=== PATIENT | female | born 1990 | race Caucasian/White ===

== ENCOUNTER → 2016-12-02 | Outpatient (REF) | payer OTHER ==
[~2016-12-02] MED LIST: ALBUTEROL INHALATION; ALLEGRA180 PO; ASPI325T; ASTELIN NASAL; AURASOL TOPICAL; CIPR500T4 OR; COLA100C2 OR; CORTISPOR OTIC; DIFLUC150 PO; DOXYCYC100 PO; FERR325T OR; FLAG500T OR; LISINOPR5 PO; MULTIVIT PO; No Historical Meds; ORTHOTRI PO; PERC5TAB8; PERC5TAB8 OR; SINGULAI10 PO; TRAM50TA2 PO; VITA500T OR; [UNRECOGNIZED DRUG - CODE] IM
== END ==
LOC: M LAB REF 20:01
PROVIDERS: ATTEND Physician Assistant Medical
DX: R50.9 Fever, unspecified (principal)

== ENCOUNTER 2016-12-19 18:32 | Emergency (ER) | payer OTHER ==
[~2016-12-19] VITALS: Ht 165.1 cm; Wt 122.5 kg
[2016-12-19] MEDS ORDERED: INCR1INH INH (18:52)
[2016-12-19] MEDS ORDERED: [UNRECOGNIZED DRUG - CODE] AD (18:52)
[2016-12-19] MEDS ORDERED: ALBU1TAB4 INH (18:52)
[2016-12-19] MEDS ORDERED: IPRATROPIUM 0.5MG/ALBUTEROL 2.5MG INH SOL UD 3ML (DUONEB)(J7620) NEB ONE (21:45)
[2016-12-19 22:38] LABS: BASO # 0.2 K/mm3 (0.0-0.2); BASO % 1.6 % (0.0-1.0); EOS # 0.4 K/mm3 (0.0-0.50); EOS % 3.1 % (0.0-3.0); LARGE UNSTAINED CELL # 0.7 K/mm3 (0.0-0.4); LARGE UNSTAINED CELL % 5.5 % (0.0-4.0); LYMPH # 9.6 K/mm3 (1.5-6.5); LYMPH % 67.4 % (24.0-44.0); MEAN CORPUSCULAR HEMOGLOBIN 30.5 pg (27.0-33.0); MEAN CORPUSCULAR HGB CONC 33.5 g/dl (32.0-36.5); MEAN CORPUSCULAR VOLUME 91.1 fl (80.0-96.0); MONO # 0.5 K/mm3 (0.0-0.8); MONO % 3.9 % (0.0-5.0); NEUTROPHILS # 2.5 K/mm3 (1.8-7.7); NEUTROPHILS % 18.5 % (36.0-66.0); PLATELET COUNT, AUTOMATED 195 k/mm3 (150-450); RED CELL DISTRIBUTION WIDTH 14.5 % (11.5-14.5); WHITE BLOOD COUNT 13.2 K/mm3 (4.0-10.0)
[2016-12-19 23:04] LABS: ALBUMIN 3.2 GM/DL (3.2-5.2); ALBUMIN/GLOBULIN RATIO 0.82 (1.00-1.93); ALKALINE PHOSPHATASE 116 U/L (45-117); ALT/SGPT 54 U/L (12-78); ANION GAP 8 MEQ/L (8-16); AST/SGOT 56 U/L (15-37); BILIRUBIN,TOTAL 1.3 MG/DL (0.2-1.0); BLOOD UREA NITROGEN 8 MG/DL (7-18); CARBON DIOXIDE LEVEL 28 MEQ/L (21-32); CHLORIDE LEVEL 106 MEQ/L (98-107); CREATININE FOR GFR 0.64 MG/DL (0.55-1.02); GLOMERULAR FILTRATION RATE > 60.0 (>60); GLUCOSE, FASTING 98 MG/DL (70-105); POTASSIUM SERUM 3.7 MEQ/L (3.5-5.1); SODIUM LEVEL 142 MEQ/L (136-145); TOTAL PROTEIN 7.1 GM/DL (6.4-8.2)
[2016-12-20] MEDS ORDERED: ISOVUE-370 76% 100ML VIAL (Q9967) As Ordered ONE (00:46)
--- NOTE | 2016-12-20 02:20 | REPUSA ---
CLINICAL HISTORY: Dyspnea, exclude PE. TECHNIQUE: Multiple incremental axial, coronal and oblique images are obtained from the thoracic inle t to the upper abdomen. Intravenous contrast material was administered as per pulmonary embolism prot ocol. COMMENTS: Limited evaluation of the peripheral branches of the pulmonary arteries. No central pulmonary embolus is seen. Aorta is of normal caliber without evidence for dissection or aneurysm. There is no evidence of pleural or parenchymal mass. There are no pleural effusions. There is no evid ence of hilar or mediastinal lymphadenopathy. The heart and great vessels are within normal limits. Images of the upper abdomen demonstrate no evidence of adrenal mass. The bony structures are free of lytic or blastic lesions. IMPRESSION: No evidence for central pulmonary embolism. Minimal basilar atelectatic pulmonary changes. Thank you for your kind referral of this patient.
[2016-12-20 02:33] VITALS: BP 114/77
--- NOTE | 2016-12-20 08:53 | REP ---
Chest two views HISTORY: Chest pain Comparison: 08/02/2016 The lungs are clear. The heart is normal in size. The pulmonary vasculature is normal in appearance. The bony structure is intact. IMPRESSION: No acute disease. Signed by Pedrito Thomason MD 12/20/2016 08:44 A
== END 2016-12-20 02:30 | disposition home or self-care (01) ==
LOC: M ED 22:16
DX: J10.89 Influenza due to other identified influenza virus with other manifestations (principal); J45.909 Unspecified asthma, uncomplicated; Z79.899 Other long term (current) drug therapy; Z88.0 Allergy status to penicillin; Z88.2 Allergy status to sulfonamides; Z88.8 Allergy status to other drugs, medicaments and biological substances
CPT/HCPCS: 36415; 71020; 71275; 80053; 83690; 85025; 85379; 94640; 99282; Q9967

== ENCOUNTER 2017-01-31 20:14 | Emergency (ER) | payer OTHER ==
[~2017-01-31] VITALS: Ht 165.1 cm; Wt 113.4 kg
[~2017-01-31 20:14] MED LIST changes: +ALBU1TAB4 INH; +INCR1INH INH; +[UNRECOGNIZED DRUG - CODE] AD
[2017-01-31 20:33] VITALS: BP 149/106
[2017-01-31] MEDS ORDERED: CLEO300C2 PO (20:45)
[2017-01-31] MEDS ORDERED: CLINDAMYCIN 150 MG CAP PO ONE (20:45)
[2017-01-31] MEDS ORDERED: NORCO 5/325MG TABLET (BULK FOR ED) PO ONE (20:45)
== END 2017-01-31 21:35 | disposition home or self-care (01) ==
LOC: M ED 20:59
DX: K08.89 Other specified disorders of teeth and supporting structures (principal); K02.9 Dental caries, unspecified; F17.200 Nicotine dependence, unspecified, uncomplicated; Z88.0 Allergy status to penicillin; Z88.2 Allergy status to sulfonamides; Z79.899 Other long term (current) drug therapy; Z88.1 Allergy status to other antibiotic agents

== ENCOUNTER 2017-10-26 18:28 | Emergency (ER) | payer OTHER ==
[2017-10-26] MEDS: NS 1,000 ML IV (20:00)
[2017-10-26] MEDS: TRIMETHOBENZAMIDE HCL INJ 200 MG/2 ML VIAL (J3250) IM (20:00)
[2017-10-26] MEDS: KETOROLAC 30 MG/ML VIAL (J1885) IV (20:00)
[2017-10-26] MEDS: LevoFLOXacin IV 750 MG in APPROPRIATE DILUENT 1 EA IV (20:00)
[2017-10-26] MEDS: ACETAMINOPHEN 325 MG TAB PO (20:00)
[2017-10-26] MEDS: guaiFENesin/CODEINE SYRUP 5 ML UDC PO (20:00)
[2017-10-26 20:49] LABS: BASO % 0.2 % (0.0-1.0); EOS % 0.2 % (0.0-3.0); HEMATOCRIT 40.6 % (36.0-47.0); HEMOGLOBIN 13.8 g/dl (12.0-16.0); IMMATURE GRANULOCYTE % 0.3 % (0-0); LYMPH # 1.6 10^3/uL (1.5-6.5); LYMPH % 24.7 % (24.0-44.0); MEAN CORPUSCULAR HEMOGLOBIN 29.5 pg (27.0-33.0); MEAN CORPUSCULAR VOLUME 86.8 fl (80.0-96.0); MONO # 0.6 10^3/uL (0.0-0.8); MONO % 9.2 % (0.0-5.0); NEUTROPHILS # 4.3 10^3/uL (1.8-7.7); NEUTROPHILS % 65.4 % (36.0-66.0); PLATELET COUNT, AUTOMATED 189 10^3/uL (150-450); RED BLOOD COUNT 4.68 10^6/uL (4.00-5.40); RED CELL DISTRIBUTION WIDTH 12.7 % (11.5-14.5); WHITE BLOOD COUNT 6.5 10^3/uL (4.0-10.0)
[2017-10-26 20:52] LABS: ANION GAP 10 MEQ/L (8-16); BLOOD UREA NITROGEN 11 MG/DL (7-18); CALCIUM LEVEL 8.3 MG/DL (8.5-10.1); CARBON DIOXIDE LEVEL 25 MEQ/L (21-32); CHLORIDE LEVEL 104 MEQ/L (98-107); GLOMERULAR FILTRATION RATE > 60.0 (>60); GLUCOSE, FASTING 98 MG/DL (70-105); POTASSIUM SERUM 3.6 MEQ/L (3.5-5.1); SODIUM LEVEL 139 MEQ/L (136-145)
[2017-10-26] MEDS: IPRATROPIUM 0.5MG/ALBUTEROL 2.5MG INH SOL UD 3ML (DUONEB)(J7620) NEB (21:40)
[2017-10-26] MEDS: ALBUTEROL 90 MCG/ACT 8GM HFA INHALER INH (22:00)
== END 2017-10-26 22:16 | disposition home or self-care (01) ==
LOC: M ED 18:28
DX: J18.9 Pneumonia, unspecified organism (principal); J45.909 Unspecified asthma, uncomplicated; F17.200 Nicotine dependence, unspecified, uncomplicated
CPT/HCPCS: J1956

== ENCOUNTER → 2018-08-03 | Outpatient (CLI) | payer OTHER | LOC: M RAD 15:14 | DX: M25.562 Pain in left knee (principal) | CPT/HCPCS: 73564 ==

== ENCOUNTER 2019-06-12 13:35 | Emergency (ER) | payer OTHER, SELFPAY ==
[~2019-06-12] VITALS: Ht 165.1 cm; Wt 121.2 kg
[~2019-06-12 13:35] MED LIST changes: +CHERSYP3 PO; +CLEO300C2 PO; +DOXY-350 PO; +LEVA750T7 PO; +PERC5TAB12 PO; +PRED1TABL PO; +TESS100C PO; +TIGA300C2 PO
[2019-06-12] MEDS ORDERED: SINUS MED (13:42)
[2019-06-12] MEDS: ALBUTEROL SULFATE 2.5 MG/0.5 ML INH NEB SOLN NEB PRN ×4 (16:23→17:05)
[2019-06-12 16:38] LABS: BASO % 0.3 % (0.0-1.0); EOS # 0.9 10^3/uL (0.0-0.50); EOS % 7.3 % (0.0-3.0); HEMATOCRIT 41.9 % (36.0-47.0); HEMOGLOBIN 14.3 g/dl (12.0-15.5); LYMPH # 2.6 10^3/uL (1.5-4.5); LYMPH % 20.1 % (24.0-44.0); MEAN CORPUSCULAR HEMOGLOBIN 31.3 pg (27.0-33.0); MEAN CORPUSCULAR HGB CONC 34.1 g/dl (32.0-36.5); MEAN CORPUSCULAR VOLUME 91.7 fl (80.0-96.0); MONO # 0.9 10^3/uL (0.0-0.8); MONO % 6.8 % (0.0-5.0); NEUTROPHILS # 8.4 10^3/uL (1.8-7.7); NEUTROPHILS % 65.2 % (36.0-66.0); PLATELET COUNT, AUTOMATED 279 10^3/uL (150-450); RED BLOOD COUNT 4.57 10^6/uL (4.00-5.40); WHITE BLOOD COUNT 12.9 10^3/uL (4.0-10.0)
[2019-06-12 17:09] LABS: ALBUMIN 3.2 GM/DL (3.2-5.2); ALT/SGPT 39 U/L (12-78); BILIRUBIN,DIRECT 0.2 MG/DL (0.0-0.2); BILIRUBIN,TOTAL 1.1 MG/DL (0.2-1.0); BLOOD UREA NITROGEN 7 MG/DL (7-18); CALCIUM LEVEL 8.8 MG/DL (8.5-10.1); CARBON DIOXIDE LEVEL 28 MEQ/L (21-32); CHLORIDE LEVEL 106 MEQ/L (98-107); CREATININE FOR GFR 0.61 MG/DL (0.55-1.30); GLOMERULAR FILTRATION RATE > 60.0 (>60); GLUCOSE, FASTING 86 MG/DL (70-100); LIPASE 80 U/L (73-393); POTASSIUM SERUM 3.9 MEQ/L (3.5-5.1); SODIUM LEVEL 140 MEQ/L (136-145); TOTAL PROTEIN 6.4 GM/DL (6.4-8.2)
--- NOTE | 2019-06-12 18:00 | REP ---
PA AND LATERAL CHEST: 06/12/2019. Comparison: Chest x-ray 10/25/2017, CT angiogram 12/20/2016. Clinical history: Dyspnea and cough. Findings: The two-views show lungs only marginally adequate in degree of inflation on the frontal and lateral projections. There is some peribronchial thickening and streaky densities suggesting bronchitis or reactive airway disease. I do not see dense consolidation to suggest pneumonia as noted on the previous study. There is no effusion or lateral pleural thickening and no apical scarring. Heart not enlarged. The aorta and airway intact. The bony thorax shows no compression deformity or focal lesion. No free air. Impression: 1. Some minor perihilar changes of bronchitis or reactive airway disease without dense consolidation, pleural effusion, cardiomegaly or edema. Electronically Signed by Cipriano Infante MD 06/12/2019 07:45 P
[2019-06-12] MEDS ORDERED: methylPREDNISolone INJ 125 MG/2 ML VIAL (J2930) IV ONE (18:30)
[2019-06-12] MEDS ORDERED: methylPREDNISolone INJ 125 MG/2 ML VIAL (J2930) IM ONE (18:45)
[2019-06-12] MEDS ORDERED: AZIT-12 PO (19:22)
[2019-06-12] MEDS ORDERED: PRED20TA PO (19:22)
[2019-06-12] MEDS ORDERED: PROAAER10 INH (20:10)
[2019-06-12 20:14] VITALS: O2SAT 97
[2019-06-12 20:15] VITALS: BP 168/80
== END 2019-06-12 20:29 | disposition home or self-care (01) ==
LOC: M ED 13:35
DX: J45.901 Unspecified asthma with (acute) exacerbation (principal); J02.8 Acute pharyngitis due to other specified organisms; J31.0 Chronic rhinitis; R00.0 Tachycardia, unspecified; F17.210 Nicotine dependence, cigarettes, uncomplicated; Z88.0 Allergy status to penicillin; Z88.2 Allergy status to sulfonamides
CPT/HCPCS: 71046; 80048; 80076; 83690; 85025; 87880; 94640; 96372; 99284; J2930

== ENCOUNTER 2019-07-10 18:46 | Emergency (ER) | payer SELFPAY ==
[~2019-07-10] VITALS: Ht 165.1 cm; Wt 113.6 kg
[~2019-07-10 18:46] MED LIST changes: +AZIT-12 PO; +PRED20TA PO; +PROAAER10 INH; +SINUS MED
[2019-07-10 19:14] LABS: BASO % 0.3 % (0.0-1.0); EOS % 9.6 % (0.0-3.0); HEMATOCRIT 37.8 % (36.0-47.0); HEMOGLOBIN 12.7 g/dl (12.0-15.5); LYMPH # 3.4 10^3/uL (1.5-5.0); LYMPH % 33.5 % (24.0-44.0); MEAN CORPUSCULAR HEMOGLOBIN 30.4 pg (27.0-33.0); MEAN CORPUSCULAR HGB CONC 33.6 g/dl (32.0-36.5); MEAN CORPUSCULAR VOLUME 90.4 fl (80.0-96.0); MONO # 0.7 10^3/uL (0.0-0.8); MONO % 6.8 % (0.0-5.0); NEUTROPHILS # 4.9 10^3/uL (1.5-8.5); PLATELET COUNT, AUTOMATED 322 10^3/uL (150-450); RED BLOOD COUNT 4.18 10^6/uL (4.00-5.40)
[2019-07-10 19:47] LABS: BLOOD UREA NITROGEN 12 MG/DL (7-18); CARBON DIOXIDE LEVEL 24 MEQ/L (21-32); CHLORIDE LEVEL 109 MEQ/L (98-107); CK-MB VALUE MASS 1.2 NG/ML (<3.6); CPK CREATINE PHOSPHOKINASE 131 U/L (26-192); CREATININE FOR GFR 0.66 MG/DL (0.55-1.30); GLOMERULAR FILTRATION RATE > 60.0 (>60); GLUCOSE, FASTING 99 MG/DL (70-100); MB/CK RELATIVE INDEX 0.92 (< OR =4); POTASSIUM SERUM 3.7 MEQ/L (3.5-5.1); SODIUM LEVEL 142 MEQ/L (136-145); TROPONIN I < 0.02 NG/ML (< 0.10)
--- NOTE | 2019-07-10 19:56 | REP ---
Portable chest x-ray: Single view. History: Dyspnea and cough. Comparison chest x-ray: June 12, 2019. Findings: EKG monitoring electrodes overlie the chest. Heart is not enlarged. Lungs are symmetrically aerated and clear. Pleural angles are sharp. No significant bony abnormality is seen. Impression: No acute disease. Electronically Signed by Marco A Larsen MD 07/10/2019 07:47 P
[2019-07-10] MEDS ORDERED: methylPREDNISolone INJ 125 MG/2 ML VIAL (J2930) IV ONE (20:15)
[2019-07-10] MEDS ORDERED: ISOVUE-370 76% 100ML VIAL (Q9967) As Ordered ONE (20:15)
[2019-07-10] MEDS: IPRATROPIUM 0.5MG/ALBUTEROL 2.5MG INH SOL UD 3ML (DUONEB)(J7620) NEB PRN ×3 (20:27→22:50)
--- NOTE | 2019-07-10 22:29 | REPVR ---
PROCEDURE INFORMATION: Exam: CT Angiography Chest With Contrast Exam date and time: 07/10/19 (8:20pm) Clinical history: 29 years old female with pleuritic chest pain and SOB. Possible pulmonary embolism. TECHNIQUE: Imaging protocol: Computed tomographic angiography of the chest with intravenous contrast. 3D rendering: MIP reconstructed images were created and reviewed. Radiation optimization: All CT scans at this facility use at least one of these dose optimization techniques: automated exposure control; mA and/or kV adjustment per patient size (includes targeted exams where dose is matched to clinical indication); or iterative reconstruction. Contrast material: Isovue 370 Contrast volume: 75 ml Contrast route: IV COMPARISON: CTA CHEST of 12/20/16 FINDINGS: Pulmonary arteries: Normal. No pulmonary emboli. Aorta: Unremarkable. No aortic aneurysm. No aortic dissection. Lungs: Unremarkable. No consolidation. No masses. Pleural space: Unremarkable. No pneumothorax. No pleural effusions. Heart: Unremarkable. No cardiomegaly. No pericardial effusion. Lymph nodes: Unremarkable. No enlarged lymph nodes. Bones/joints: Unremarkable. No acute fracture. Soft tissues: Unremarkable. Upper abdomen: Small hiatal hernia. Perhaps previous cholecystectomy (needs correlation). IMPRESSION: No acute findings. Electronically signed by: Radha Kern On 07/10/2019 22:29:21 PM
--- NOTE | 2019-07-10 22:31 | REPVR ---
PROCEDURE INFORMATION: Exam: US Duplex Right Lower Extremity Veins, Limited Exam date and time: 07/10/19 (9:21pm) Clinical history: 29 years old female with right left pain and swelling. Possible DVT. TECHNIQUE: Imaging protocol: Real-time Duplex ultrasound of the Right Lower Extremity with 2-D marie scale, color Doppler flow and spectral waveform analysis with image documentation. Limited exam was focused on the right lower extremity veins. COMPARISON: No relevant prior studies available FINDINGS: Right deep veins: Unremarkable. The common femoral, femoral, proximal profunda femoral and popliteal veins are patent without thrombus. Normal Doppler waveforms. Normal compressibility and augmentation responses. Right superficial veins: Unremarkable. Saphenofemoral junction is patent without thrombus. Soft tissues: Unremarkable. IMPRESSION: No acute findings. No evidence of deep vein thrombosis. Electronically signed by: Radha Kern On 07/10/2019 22:31:33 PM
[2019-07-10] MEDS ORDERED: PRED20TA PO (23:36)
[2019-07-10] MEDS ORDERED: VENTAER INH (23:36)
[2019-07-10 23:49] VITALS: O2SAT 95
[2019-07-10 23:51] VITALS: BP 152/89
--- NOTE | 2019-07-11 20:39 | ECGEPIP ---
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
== END 2019-07-10 23:53 | disposition home or self-care (01) ==
LOC: M ED 18:46
DX: R06.02 Shortness of breath (principal); R06.2 Wheezing; F17.200 Nicotine dependence, unspecified, uncomplicated; Z88.0 Allergy status to penicillin; Z88.2 Allergy status to sulfonamides
CPT/HCPCS: 71045; 71275; 80048; 82550; 82553; 84484; 85025; 93005; 93041; 93971; 94640; 94760; 96374; 99285; J2930; Q9967

== ENCOUNTER 2019-10-31 06:43 | Emergency (ER) | payer SELFPAY ==
[~2019-10-31] VITALS: Ht 165.1 cm; Wt 118.2 kg
[~2019-10-31 06:43] MED LIST changes: +VENTAER INH
[2019-10-31] MEDS ORDERED: nyquil PO (06:48)
[2019-10-31] MEDS ORDERED: IPRATROPIUM 0.5MG/ALBUTEROL 2.5MG INH SOL UD 3ML (DUONEB)(J7620) NEB ONE ×2 (07:00→08:00)
[2019-10-31] MEDS ORDERED: ALBUTEROL SULFATE 2.5 MG/0.5 ML INH NEB SOLN INH ONE (07:00)
--- NOTE | 2019-10-31 07:33 | REP ---
Clinical: Cough and fever with rhonchi . Comparison: 07/10/2019 . Technique: PA and lateral. Findings: The mediastinum and cardiac silhouette are normal. The lung ruiz are clear and without acute consolidation, effusion, or pneumothorax. The skeletal structures are intact and normal. Impression: 1. No focal consolidation. Electronically Signed by Mikie Wilde MD 10/31/2019 07:24 A
[2019-10-31 07:36] LABS: INFLUENZA A AMPLIFICATION NEGATIVE (NEGATIVE); INFLUENZA B AMPLIFICATION POSITIVE (NEGATIVE)
[2019-10-31] MEDS ORDERED: OSELTAMIVIR PHOSPHATE 75 MG CAP (TAMIFLU) PO ONE (08:00)
[2019-10-31] MEDS ORDERED: predniSONE 20 MG TAB PO ONE (09:00)
[2019-10-31] MEDS ORDERED: MUCI600T31 PO (09:27)
[2019-10-31] MEDS ORDERED: PRED20TA PO (09:27)
[2019-10-31] MEDS ORDERED: OSEL75CA PO (09:27)
[2019-10-31] MEDS ORDERED: VENTAER INH (09:27)
[2019-10-31 09:34] VITALS: BP 142/87
== END 2019-10-31 09:41 | disposition home or self-care (01) ==
LOC: M ED 06:43
DX: J10.1 Influenza due to other identified influenza virus with other respiratory manifestations (principal); J20.9 Acute bronchitis, unspecified; B34.9 Viral infection, unspecified; F17.200 Nicotine dependence, unspecified, uncomplicated; Z88.0 Allergy status to penicillin; Z88.2 Allergy status to sulfonamides

== ENCOUNTER 2019-12-31 00:38 | Emergency (ER) | payer OTHER, SELFPAY ==
[~2019-12-31] VITALS: Ht 165.1 cm; Wt 127.3 kg
[~2019-12-31 00:38] MED LIST changes: +MUCI600T31 PO; +OSEL75CA PO; +nyquil PO
[2019-12-31] MEDS ORDERED: IBUP-1114 PO (00:45)
[2019-12-31] MEDS ORDERED: predniSONE 20 MG TAB PO ONE (02:00)
[2019-12-31] MEDS ORDERED: COMBIVENT RESPIMAT 100-20MCG INHALER 4GM INH ONE (02:00)
[2019-12-31] MEDS ORDERED: PRED20TA PO (03:37)
[2019-12-31 03:52] VITALS: BP 142/96
--- NOTE | 2019-12-31 05:19 | REP ---
Clinical: Cough and wheezing . Comparison: 10/31/2019 . Technique: PA and lateral. Findings: The mediastinum and cardiac silhouette are normal. No focal consolidation, effusion, or pneumothorax. The skeletal structures are intact and normal. Impression: 1. No focal consolidation or effusion. Electronically Signed by Mikie Wilde MD 12/31/2019 05:10 A
--- NOTE | 2019-12-31 07:47 | ECGEPIP ---
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
== END 2019-12-31 03:54 | disposition home or self-care (01) ==
LOC: M ED 00:38
DX: J20.9 Acute bronchitis, unspecified (principal); B34.9 Viral infection, unspecified; J45.909 Unspecified asthma, uncomplicated; F17.200 Nicotine dependence, unspecified, uncomplicated; Z88.0 Allergy status to penicillin; Z88.2 Allergy status to sulfonamides

== ENCOUNTER 2020-01-08 18:00 | Emergency (ER) | payer OTHER ==
[~2020-01-08] VITALS: Ht 165.1 cm; Wt 130.7 kg
[~2020-01-08 18:00] MED LIST changes: +IBUP-1114 PO
[2020-01-08 18:40] LABS: BASO # 0.1 10^3/uL (0.0-0.2); BASO % 0.4 % (0.0-1.0); EOS # 0.9 10^3/uL (0.0-0.5); EOS % 7.8 % (0.0-3.0); HEMATOCRIT 42.2 % (36.0-47.0); HEMOGLOBIN 13.9 g/dl (12.0-15.5); LYMPH # 3.5 10^3/uL (1.5-5.0); LYMPH % 28.5 % (24.0-44.0); MEAN CORPUSCULAR HEMOGLOBIN 30.6 pg (27.0-33.0); MEAN CORPUSCULAR HGB CONC 32.9 g/dl (32.0-36.5); MONO # 0.9 10^3/uL (0.0-0.8); MONO % 7.4 % (0.0-5.0); NEUTROPHILS # 6.7 10^3/uL (1.5-8.5); NEUTROPHILS % 55.3 % (36.0-66.0); PLATELET COUNT, AUTOMATED 312 10^3/uL (150-450); RED BLOOD COUNT 4.54 10^6/uL (4.00-5.40); WHITE BLOOD COUNT 12.1 10^3/uL (4.0-10.0)
[2020-01-08] MEDS ORDERED: ASPIRIN 81 MG CHEW TABLET PO ONE (18:45)
--- NOTE | 2020-01-08 18:47 | REP ---
Clinical: Chest pain . Comparison: 12/31/2019 . Findings: The mediastinum and cardiac silhouette are stable and within normal limits for portable technique. The lung ruiz are clear without acute consolidation, effusion, or pneumothorax. Skeletal structures are intact. Impression: No acute cardiopulmonary process appreciated. Electronically Signed by Mikei Wilde MD 01/08/2020 06:38 P
[2020-01-08 19:02] LABS: BLOOD UREA NITROGEN 10 MG/DL (7-18); CALCIUM LEVEL 8.9 MG/DL (8.5-10.1); CARBON DIOXIDE LEVEL 28 MEQ/L (21-32); CHLORIDE LEVEL 106 MEQ/L (98-107); CK-MB VALUE MASS < 1.0 NG/ML (<3.6); CPK CREATINE PHOSPHOKINASE 151 U/L (26-192); CREATININE FOR GFR 0.56 MG/DL (0.55-1.30); GLOMERULAR FILTRATION RATE > 60.0 (>60); GLUCOSE, FASTING 78 MG/DL (70-100); MB/CK RELATIVE INDEX 0.66 (< OR =4); POTASSIUM SERUM 4.2 MEQ/L (3.5-5.1); SODIUM LEVEL 139 MEQ/L (136-145); TROPONIN I < 0.02 NG/ML (< 0.10)
[2020-01-08] MEDS ORDERED: ISOVUE-370 76% 100ML VIAL (Q9967) As Ordered ONE (19:29)
--- NOTE | 2020-01-08 19:54 | REPVR ---
PROCEDURE INFORMATION: Exam: CT Angiography Chest With Contrast Exam date and time: 01/08/2020 7:37 PM Age: 29 years old Clinical indication: Chest pain; Additional info: Chest pain; Elevated dimer; R/O pe TECHNIQUE: Imaging protocol: Computed tomographic angiography of the chest with intravenous contrast. 3D rendering: MIP and/or 3D reconstructed images were created by the technologist. Radiation optimization: All CT scans at this facility use at least one of these dose optimization techniques: automated exposure control; mA and/or kV adjustment per patient size (includes targeted exams where dose is matched to clinical indication); or iterative reconstruction. Contrast material: ISOVUE 370; Contrast volume: 75 ml; Contrast route: IV; COMPARISON: CT ANGIO CHEST 07/10/2019 8:19 PM FINDINGS: Pulmonary arteries: Normal. No pulmonary emboli. Aorta: Unremarkable. No aortic aneurysm. No aortic dissection. Lungs: Unremarkable. No consolidation. No masses. Pleural space: Unremarkable. No pneumothorax. No pleural effusion. Heart: Unremarkable. No cardiomegaly. No pericardial effusion. Lymph nodes: Unremarkable. No enlarged lymph nodes. Bones/joints: Unremarkable. No acute fracture. Soft tissues: Unremarkable. IMPRESSION: No pulmonary embolism. Electronically signed by: Ulysses Wong On 01/08/2020 19:54:13 PM
[2020-01-09 00:15] LABS: CK-MB VALUE MASS < 1.0 NG/ML (<3.6); CPK CREATINE PHOSPHOKINASE 104 U/L (26-192); MB/CK RELATIVE INDEX 0.96 (< OR =4); TROPONIN I < 0.02 NG/ML (< 0.10)
[2020-01-09 00:35] VITALS: BP 122/58
--- NOTE | 2020-01-09 05:37 | ECGEPIP ---
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
--- NOTE | 2020-01-09 05:45 | ECGEPIP ---
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
== END 2020-01-09 00:37 | disposition home or self-care (01) ==
LOC: M ED 18:00
DX: R07.89 Other chest pain (principal); J45.909 Unspecified asthma, uncomplicated; Z88.0 Allergy status to penicillin; Z88.1 Allergy status to other antibiotic agents; Z88.2 Allergy status to sulfonamides; F17.210 Nicotine dependence, cigarettes, uncomplicated
CPT/HCPCS: 36415; 71045; 71275; 80048; 82550; 82553; 85025; 85379; 93005; 93041; 94760; 99285; Q9967

== ENCOUNTER 2020-06-02 20:21 | Emergency (ER) | payer OTHER ==
[2020-06-02] MEDS ORDERED: MAGIC MOUTHWASH SUSPENSION BTL ONE (20:22)
[2020-06-02] MEDS ORDERED: diphenhydrAMINE 25MG CAP As Ordered ONE (23:58)
[2020-06-02] MEDS ORDERED: diphenhydrAMINE 25MG CAP ONE (23:58)
[2020-06-03] MEDS ORDERED: NAPROXEN 250 MG TAB ONE (01:00)
[2020-06-03] MEDS ORDERED: ACETAMINOPHEN 500 MG TAB ONE (01:00)
== END 2020-06-03 00:45 | disposition home or self-care (01) ==
LOC: M ED 20:21
DX: H65.03 Acute serous otitis media, bilateral (principal); R07.0 Pain in throat; J45.909 Unspecified asthma, uncomplicated; F17.200 Nicotine dependence, unspecified, uncomplicated; Z88.0 Allergy status to penicillin; Z88.1 Allergy status to other antibiotic agents

== ENCOUNTER 2020-07-28 19:32 | Emergency (ER) | payer OTHER ==
[~2020-07-28] VITALS: Ht 165.1 cm; Wt 128.5 kg
[2020-07-28] MEDS ORDERED: IBUP200C29 PO (19:47)
[2020-07-28] MEDS ORDERED: COMBIVENT RESPIMAT 100-20MCG INHALER 4GM INH STA (20:20)
[2020-07-28] MEDS ORDERED: methylPREDNISolone 125MG 2ML VIAL IV ONE (20:30)
[2020-07-28] MEDS ORDERED: NS 1,000 ML IV ONE (20:30)
[2020-07-28] MEDS ORDERED: ONDANSETRON 4MG/2ML VIAL IV ONE (20:30)
[2020-07-28 20:42] LABS: BASO % 0.4 % (0.0-1.0); EOS # 0.9 10^3/uL (0.0-0.5); EOS % 8.6 % (0.0-3.0); HEMOGLOBIN 13.6 g/dl (12.0-15.5); LYMPH # 3.1 10^3/uL (1.5-5.0); MEAN CORPUSCULAR HEMOGLOBIN 29.5 pg (27.0-33.0); MEAN CORPUSCULAR HGB CONC 32.4 g/dl (32.0-36.5); MEAN CORPUSCULAR VOLUME 91.1 fl (80.0-96.0); MONO # 0.8 10^3/uL (0.0-0.8); MONO % 7.6 % (0.0-5.0); NEUTROPHILS # 5.8 10^3/uL (1.5-8.5); NEUTROPHILS % 53.9 % (36.0-66.0); PLATELET COUNT, AUTOMATED 298 10^3/uL (150-450); RED BLOOD COUNT 4.61 10^6/uL (4.00-5.40); WHITE BLOOD COUNT 10.8 10^3/uL (4.0-10.0)
[2020-07-28 21:11] LABS: ALBUMIN 3.5 GM/DL (3.2-5.2); BILIRUBIN,DIRECT 0.2 MG/DL (0.0-0.2); BILIRUBIN,TOTAL 0.7 MG/DL (0.2-1.0)
[2020-07-28 21:38] LABS: INFLUENZA A AMPLIFICATION NEGATIVE (NEGATIVE); INFLUENZA B AMPLIFICATION NEGATIVE (NEGATIVE)
--- NOTE | 2020-07-28 21:57 | REPVR ---
PROCEDURE INFORMATION: Exam: XR Complete Acute Abdomen Series Exam date and time: 07/28/2020 9:32 PM Age: 30 years old Clinical indication: Vomiting; Additional info: Wheezing; Fever TECHNIQUE: Imaging protocol: XR complete acute abdomen series, including 2 or more views of the abdomen and a single view chest. COMPARISON: CR PORTABLE CHEST X-RAY 01/08/2020 6:22 PM FINDINGS: Lungs: Normal. No consolidation. Pleural space: Normal. No pneumothorax. Heart/Mediastinum: Normal. No cardiomegaly. Gastrointestinal tract: Normal. No bowel dilation. Intraperitoneal space: Normal. No free air. Bones/joints: Normal. No acute fracture. Soft tissues: Normal. IMPRESSION: No acute findings. Electronically signed by: Robert Sánchez On 07/28/2020 21:57:05 PM
[2020-07-28 22:18] VITALS: BP 131/86
[2020-07-28] MEDS ORDERED: ONDA4TAB6 PO (22:25)
[2020-07-28] MEDS ORDERED: PRED10TA2 PO (22:25)
[2020-07-28] MEDS ORDERED: PROAAER10 INH (22:25)
== END 2020-07-28 22:48 | disposition home or self-care (01) ==
LOC: M ED 19:32
DX: J45.901 Unspecified asthma with (acute) exacerbation (principal); R06.02 Shortness of breath; I10 Essential (primary) hypertension; F17.200 Nicotine dependence, unspecified, uncomplicated; Z88.0 Allergy status to penicillin; Z88.2 Allergy status to sulfonamides
CPT/HCPCS: 74021; 80047; 80076; 83690; 84702; 85025; 87502; 94640; 96361; 96374; 96375; 99284; J2405; J2930; U0003

== ENCOUNTER → 2023-04-16 | Outpatient (CLI) | payer OTHER, SELFPAY ==
[~2023-04-16] MED LIST changes: -DOXY-350 PO; +DOXY-444 PO; +IBUP200C29 PO; +ONDA4TAB6 PO; +PRED10TA2 PO
== END ==
LOC: M LAB 15:02
PROVIDERS: ATTEND Physician Assistant
DX: M25.562 Pain in left knee (principal); W10.8XXA Fall (on) (from) other stairs and steps, initial encounter

== ENCOUNTER → 2024-06-22 | Outpatient (CLI) | payer OTHER ==
[~2024-06-22] MED LIST changes: -ALBU1TAB4 INH; +ALBU4TAB9 INH; +DOXY-440 PO; -DOXY-444 PO; +ONDA-282 PO; -ONDA4TAB6 PO
== END ==
LOC: M RAD 11:50
PROVIDERS: ATTEND Physician Assistant Medical
DX: M79.605 Pain in left leg (principal)

== ENCOUNTER → 2024-08-16 | Outpatient (CLI) | payer OTHER ==
[2024-08-16 18:29] LABS: BASO % 0.4 % (0.0-1.0); EOS # 0.6 10^3/uL (0.0-0.5); EOS % 6.2 % (0.0-3.0); HEMATOCRIT 41.8 % (36.0-47.0); HEMOGLOBIN 13.7 g/dl (12.0-15.5); LYMPH # 2.7 10^3/uL (1.5-5.0); LYMPH % 29.5 % (24.0-44.0); MEAN CORPUSCULAR HEMOGLOBIN 29.9 pg (27.0-33.0); MEAN CORPUSCULAR HGB CONC 32.8 g/dl (32.0-36.5); MEAN CORPUSCULAR VOLUME 91.3 fl (80.0-96.0); MONO # 0.7 10^3/uL (0.0-0.8); NEUTROPHILS # 5.3 10^3/uL (1.5-8.5); NEUTROPHILS % 56.6 % (36.0-66.0); PLATELET COUNT, AUTOMATED 307 10^3/uL (150-450); RED BLOOD COUNT 4.58 10^6/uL (4.00-5.40); WHITE BLOOD COUNT 9.3 10^3/uL (4.0-10.0)
[2024-08-16 18:52] LABS: HEMOGLOBIN A1c 5.1 % (4.0-6.0)
[2024-08-16 19:28] LABS: PROLACTIN 7.43 NG/ML; THYROID STIMULATING HORMONE 2.055 uIU/ML (0.55-4.78)
[2024-08-16 19:29] LABS: FREE T4 1.24 NG/DL (0.89-1.76)
[2024-08-19 00:53] LABS: DEHYDROEPIANDROSTERONE SULFATE 262 mcg/dL (19-237)
== END ==
LOC: M PLALAB 14:43
PROVIDERS: ATTEND Nurse Practitioner Family
DX: N92.6 Irregular menstruation, unspecified (principal)

== ENCOUNTER → 2024-09-19 | Outpatient (CLI) | payer OTHER | LOC: M WHC 07:42 | PROVIDERS: ATTEND Nurse Practitioner Family | DX: N92.6 Irregular menstruation, unspecified (principal) ==

== ENCOUNTER → 2024-10-12 | Outpatient (REF) | payer OTHER | LOC: M LAB REF 16:09 | PROVIDERS: ATTEND Physician Assistant Medical | DX: B34.9 Viral infection, unspecified (principal) ==

== ENCOUNTER → 2024-10-23 | Outpatient (REF) | payer OTHER ==
[2024-10-26 15:53] LABS: HPV APTIMA Not Detected (Not Detected)
== END ==
LOC: M SFHCWAGY 15:22
PROVIDERS: ATTEND Nurse Practitioner Family
DX: Z12.4 Encounter for screening for malignant neoplasm of cervix (principal)

== ENCOUNTER → 2024-11-08 | Outpatient (CLI) | payer OTHER | LOC: M RAD 12:28 | PROVIDERS: ATTEND Nurse Practitioner Family | DX: N92.6 Irregular menstruation, unspecified (principal); N88.8 Other specified noninflammatory disorders of cervix uteri; R93.89 Abnormal findings on diagnostic imaging of other specified body structures ==

== ENCOUNTER → 2024-11-08 | Outpatient (CLI) | payer OTHER | LOC: M WHC 10:05 | PROVIDERS: ATTEND Nurse Practitioner Family | DX: Z12.31 Encounter for screening mammogram for malignant neoplasm of breast (principal); R92.313 Mammographic fatty tissue density, bilateral breasts; R92.8 Other abnormal and inconclusive findings on diagnostic imaging of breast; Z80.3 Family history of malignant neoplasm of breast ==

== ENCOUNTER → 2024-11-27 | Outpatient (CLI) | payer OTHER | LOC: M WHC 12:27 | PROVIDERS: ATTEND Nurse Practitioner Family | DX: R92.8 Other abnormal and inconclusive findings on diagnostic imaging of breast (principal); N60.11 Diffuse cystic mastopathy of right breast ==

== ENCOUNTER 2025-04-23 06:04 | Day surgery (SDC) | payer OTHER ==
[~2025-04-23] VITALS: Ht 165.1 cm; Wt 148.8 kg
[~2025-04-23 06:04] MED LIST changes: +ALBU8.5H; +ERGO500029 PO; +LEVO150T7 PO; +LISI30TA4 PO; +LORY1TAB2 PO; +METO1TAB7 PO; +PRED-1142 PO; -PRED1TABL PO
[2025-04-23] MEDS ORDERED: LR 1,000 ML IV SCH (06:45)
[2025-04-23] MEDS ORDERED: LIDOCAINE 2% 100 MG/5 ML SDV (FOR ANES.) As Ordered ONE (06:53)
[2025-04-23] MEDS ORDERED: ONDANSETRON 4MG 2ML VIAL As Ordered ONE (06:53)
[2025-04-23] MEDS ORDERED: dexAMETHasone 4 MG/ML 1 ML VIAL As Ordered ONE (06:53)
[2025-04-23] MEDS ORDERED: MIDAZOLAM INJ 2 MG/2 ML VIAL As Ordered ONE (06:59)
[2025-04-23] MEDS: SILVER NITRATE APPLICATOR (1 = QTY 10) As Ordered ONE (07:11)
[2025-04-23] MEDS ORDERED: KETOROLAC 30 MG/ML 1 ML VIAL As Ordered ONE (07:14)
[2025-04-23 07:24] LABS: CALCIUM LEVEL 8.8 MG/DL (8.5-10.1); CARBON DIOXIDE LEVEL 28 MMOL/L (20-31); CHLORIDE LEVEL 106 MMOL/L (98-107); CREATININE FOR GFR 0.56 MG/DL (0.55-1.30); GLOMERULAR FILTRATION RATE > 90.0 (>60); POTASSIUM SERUM 4.1 MMOL/L (3.5-5.1); SODIUM LEVEL 143 MMOL/L (136-145)
[2025-04-23 07:28] LABS: HCG, SERUM QUALITATIVE NEGATIVE (NEGATIVE)
[2025-04-23] MEDS ORDERED: dexmedeTOMIDine (4 MCG/ML) 200 MCG/50 ML BTL As Ordered ONE (07:38)
[2025-04-23] MEDS ORDERED: ACETAMINOPHEN 1000MG/100ML IV BAG As Ordered ONE (07:41)
[2025-04-23] MEDS: LIDOCAINE 1% MDV 20 ML VIAL As Ordered ONE (07:55)
[2025-04-23] MEDS ORDERED: ONDANSETRON 4MG 2ML VIAL IV PRN (08:25)
[2025-04-23] MEDS ORDERED: MORPHINE 2 MG/ML 1 ML VIAL IV PRN (08:25)
[2025-04-23 09:05] VITALS: BP 127/64; TEMP 97.2; O2SAT 96
== END 2025-04-23 09:35 | disposition home or self-care (01) ==
LOC: M SDC 06:04
PROVIDERS: ATTEND Obstetrics & Gynecology
DX: N84.0 Polyp of corpus uteri (principal); N93.9 Abnormal uterine and vaginal bleeding, unspecified; Z30.430 Encounter for insertion of intrauterine contraceptive device; E66.01 Morbid (severe) obesity due to excess calories; I10 Essential (primary) hypertension; E03.9 Hypothyroidism, unspecified; J45.909 Unspecified asthma, uncomplicated; Z79.899 Other long term (current) drug therapy; Z79.890 Hormone replacement therapy; Z68.43 Body mass index [BMI] 50.0-59.9, adult; Z88.0 Allergy status to penicillin; Z88.2 Allergy status to sulfonamides; Z90.49 Acquired absence of other specified parts of digestive tract; Z87.891 Personal history of nicotine dependence; Z80.3 Family history of malignant neoplasm of breast
CPT/HCPCS: 36415; 58300; 58558; 80048; 84703; 85014; 85018; 86850; 86900; 86901; 88305; J1100; J1885; J2250; J2405; J3010; J7298

== ENCOUNTER 2025-10-04 01:07 | Emergency (ER) | payer OTHER ==
[~2025-10-04] VITALS: Ht 152.4 cm; Wt 142.4 kg
[2025-10-04 01:08] VITALS: BP 142/92; TEMP 98.1; O2SAT 99
== END 2025-10-04 03:30 | disposition left against medical advice (07) ==
LOC: M ED 01:07
DX: Z53.21 Procedure and treatment not carried out due to patient leaving prior to being seen by health care provider (principal)